=== PATIENT | female | born 1955 | race Caucasian/White ===

== ENCOUNTER 2017-06-29 08:08 | Inpatient (IN) | payer OTHER ==
[~2017-06-29] VITALS: Ht 171.4 cm; Wt 106.1 kg
[2017-06-29] VITALS (9 sets, daily range): BP systolic 112–178; BP diastolic 67–100; PULSE 52–77; RESP 11–20; O2SAT 93–99
--- NOTE | 2017-06-29 08:17 | ED.REPORT ---
HPI-Dizziness / Weakness Date of Service Jun 29, 2017 ED Provider: Marcus Roper MD Patient is a 62 year old female with a history of atrial fibrillation on Warfarin and a tricuspid and mitral valve replacement 8 months ago who presents to the ED via EMS complaining of sudden onset dizziness this morning. Associated symptoms include nausea and peripheral diplopia. She denies headache , tinnitus, chest pain, shortness of breath or fever. The patient reports that she got up this morning to use the restroom and when she laid back in bed she began feeling extremely dizzy. Per EMS, when the patient was symptomatic she would go into runs of junctional rhythm, losing P waves, that lasts about 15 seconds. When the patient sat up or stood she also went into the junctional rhythm and had occasional PJCs with occasional rate changes slowing down into the mid 40's. Patient's pressures stayed in the 160's and Zofran was given en route. The patient states that she has never experienced this before. She also reports that two weeks ago her medication doses were changed. Nursing Notes Stated Complaint: HEART RHYTHM ISSUES Chief Complaint: Dysrhythmia/Cardiac Nursing Notes Reviewed: Yes Allergies: Coded Allergies: Beta-Blockers (Beta-Adrenergic Bloc (Verified Allergy, Intermediate, hallucinations, 06/29/17) latex (Verified Allergy, Intermediate, skin szymanski, 06/29/17) banana (Verified Allergy, Unknown, 06/29/17) codeine (Verified Adverse Reaction, Intermediate, nausea, vomiting, 06/29/17 ) General Time Seen by MD: 08:12 Chief Complaint Dizzy Hx Obtained From: Patient, EMS Arrived By: Ambulance Onset Occurred: Just prior to arrival Symptom Duration: Since onset Severity: Current: No pain currently Recent Healthcare: Recent doctor visit Similar Sx Previous: No Past Medical History Past Medical History atrial fibrillation on Warfarin Grave's disease Reports: Hyperlipidemia Past Surgical History tricuspid and mitral valve replacement Smoking History Unknown if Ever Smoker Social History Other Social History: From out of town, Visiting locally Ambulatory Status Independent Review of Systems Constitutional: Denies: Chills, Fever Eyes: Reports: Diplopia Ears / Nose / Throat: Denies: Ear ringing bilateral Respiratory: Denies: Non-productive cough, Shortness of breath Cardiovascular: Denies: Chest pain GI: Reports: Nausea Skin: Denies Itching, Denies Rash Neurologic: Reports: Dizziness, Denies: Headache, Numbness, Weakness Complete sys rev & neg: except as marked. Physical Exam Initial Vital Signs Vital Signs (First) Date Time Temp Pulse Resp B/P Pulse Ox O2 Delivery O2 Flow Rate FiO2 06/29/17 08:08 37.1 70 14 178/81 99 Room Air Initial VS: Reviewed General/Constitutional: Awake, Alert Head / Eyes: Atraumatic, Normocephalic, PERRL extraoccular movements intact horizontal nystagmus to the right Respiratory / Chest: Atraumatic, Breath sounds NL, Breath sounds = bilat, No respiratory distress Cardiovascular: Heart rate NL, Regular rhythm mechanical valve click Neurologic: Oriented X3, Speech NL, No motor deficits, No sensory deficits no facial droop or asymmetry no ataxia ENT: Atraumatic, Airway patent, Tympanic membs NL Neck: Atraumatic, Supple, No carotid bruit Lower Extremity / Pelvis / MS: Atraumatic, Full range of motion Skin: Atraumatic, Color NL, No rash, Warm, Dry Psychiatric: Affect NL, Mood NL Interpretation & Diagnostics Interpretation & Diagnostics: BRAIN MRI: IMPRESSION: IMPRESSION: 1. Small acute to early subacute lacunar infarct in the left cerebellar hemisphere. No associated hemorrhagic transformation. Findings discussed with Dr. Roper on 06/29/17 at 3 PM. 2. Scattered small foci of magnetic susceptibility bilaterally are nonspecific and may reflect foci of amyloid. 3. Mild cerebral volume loss and chronic white matter small vessel ischemic changes. Dictated by: Max Aaron M.D. on 06/29/2017 at 14:58 Approved by: Max Aaron M.D. on 06/29/2017 at 15:11 Lab Results Interpretation Result Diagram: 06/29/17 0810 06/29/17 0810 Test 06/29/17 08:10 White Blood Count 5.8th/mm3 (3.8-10.1) Red Blood Count 4.73mil/mm3 (3.90-5.20) Hemoglobin 13.1g/dL (12.0-15.6) Hematocrit 40.7% (35.0-46.0) Mean Corpuscular Volume 86.0fL (81-100) Mean Corpuscular Hemoglobin 27.7pg (27.0-35.0) Mean Corpuscular Hemoglobin Concent 32.2% (32.0-37.0) Red Cell Distribution Width 16.0% (12.3-15.4) Platelet Count 183bil/L (150-400) Neutrophils (%) (Auto) 42.1% (40-74) Lymphocytes (%) (Auto) 44.7% (14-46) Monocytes (%) (Auto) 8.2% (4-12) Eosinophils (%) (Auto) 4.1% (0-5) Basophils (%) (Auto) 0.7% (0-3) Prothrombin Time 18.7sec (8.1-12.5) Prothromb Time International Ratio 1.73ratio Sodium Level 142mEq/L (134-144) Potassium Level 3.6mEq/L (3.5-5.2) Chloride Level 102mEq/L (97-108) Carbon Dioxide Level 22mmol/L (18-29) Blood Urea Nitrogen 15mg/dL (8-27) Creatinine 0.95mg/dL (0.57-1.00) Estimat Glomerular Filtration Rate 85mL/min (>59) Glucose Level 87mg/dL (60-99) Calcium Level 9.4mg/dL (8.5-10.1) Magnesium Level 2.1mg/dL (1.6-2.6) Total Bilirubin 0.5mg/dL (0.0-1.2) Aspartate Amino Transf (AST/SGOT) 23U/L (0-50) Alanine Aminotransferase (ALT/SGPT) 18U/L (0-32) Alkaline Phosphatase 97U/L (25-165) Troponin T 0.010ug/L (0.0-0.011) Total Protein 7.7g/dL (6.4-8.4) Albumin 4.0g/dL (3.4-5.0) ECG Interpretation ECG Interpretation: atrial fibrillation, rate 74, with LVH Time: 08:16 Interpreted by: ED physician ECG Interpretation: atrial fibrillation slow ventricular response Time: 12:17 Normal ECG Interpretation: Normal rate (53) X-Ray Chest Interpretation Chest Xray Interpretation: IMPRESSION: 1. Probable scarring in the right midlung peripherally. 2. No definite acute cardiopulmonary disease. Dictated by: Max Aaron M.D. on 06/29/2017 at 9:02 Approved by: Max Aaron M.D. on 06/29/2017 at 9:04 View: Portable, 1 view Interpretation / Wet Read by: Interpret - Radiologist CT Head Interpretation IMPRESSION: 1. No definite acute intracranial abnormality. 2. Bilateral basal ganglia calcifications of indeterminate clinical significance. The findings are nonspecific with a broad differential but likely reflect a metabolic process. Correlation is recommended with clinical history. Dictated by: Max Aaron M.D. on 06/29/2017 at 8:41 Approved by: Max Aaron M.D. on 06/29/2017 at 8:44 Interpretation / Wet Read by: Interpret - Radiologist Re-Eval/Medical Decision Med Decision/Clinical Course 62 year-old female with a mechanical valve presenting with vertigo. Abrupt onset with change in head postion suggested peripheral origin. Was noted to be inadequately anticoagulated and vertigo was persistent and disabling. MR brain, which was delayed by need to confirm implants were safe for MR (they were) demomstrated lacunar infarct of L cerebellum. Lovenox ordered and CT angio brain ordered. Plan to admit with Neuro consult. Re-Evaluation/Progress #1: Time of Eval: 10:10 Re-Evaluation/Progress Note: Discussed EKG, labs and scan results. Re-Evaluation/Progress #2: Time of Eval: 11:19 Re-Evaluation/Progress Note: Patient states that when she sat up to go to CT she suddenly got dizzy. Re-Evaluation/Progress #3: Time of Eval: 13:20 Re-Evaluation/Progress Note: Patient reports that her dizziness has improved. Discussed plan for MRI Re-Evaluation/Progress #4: Time of Eval: 15:16 Re-Evaluation/Progress Note: Discussed MRI results and plan for admit. Patient understands and agrees to plan. All questions were addressed. 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 Roper personally performed the history, physical exam and medical decision-making; I reviewed and confirmed the accuracy of the information in the transcribed note. Signed by: Kiran Flores, 06/29/17. Marcus Roper MD Jun 29, 2017 08:16 Leeann Torres Jun 29, 2017 08:23
[2017-06-29 08:44] LABS: BASOPHILS % (AUTO) 0.7 % (0-3); EOSINOPHILS % (AUTO) 4.1 % (0-5); MONOCYTES % (AUTO) 8.2 % (4-12); Mean Corpuscular Hemoglobin 27.7 pg (27.0-35.0); NEUTROPHILS % (AUTO) 42.1 % (40-74); Platelet Count 183 bil/L (150-400)
--- NOTE | 2017-06-29 08:45 | DRSVH ---
PROCEDURE: CT BRAIN WITHOUT CONTRAST ([id number]) INDICATIONS: vertigo, anticoagulated TECHNIQUE: Noncontrast 4.5 mm thick angled axial sections acquired from the foramen magnum to the vertex, with c oronal reformats. COMPARISON: None. FINDINGS: Image quality: Excellent. CSF spaces: Basal cisterns are patent. No extra-axial fluid collections. Ventricles are normal in size and shape. Brain: No intracranial hemorrhage, mass, or mass effect. Murphy-white matter interface is preserved. There is bilateral hyperdensity within the basal ganglia likely representing calcifications. Skull and face: Calvarium and visualized facial bones are intact, without suspicious lesions. Sinuses: Visualized sinuses and mastoids are clear. IMPRESSION: 1. No definite acute intracranial abnormality. 2. Bilateral basal ganglia calcifications of indeterminate clinical significance. The findings are nonspecific with a broad differential but likely reflect a metabolic process. Correlation is recomme nded with clinical history. Dictated by: Max Aaron M.D. on 06/29/2017 at 8:41 Approved by: Max Aaron M.D. on 06/29/2017 at 8:44
[2017-06-29 09:04] LABS: INR 1.73 ratio
--- NOTE | 2017-06-29 09:05 | DRSVH ---
PROCEDURE: X-RAY CHEST ONE VIEW, PORTABLE ([id number]) INDICATIONS: Dizziness and irregular heart rhythm. TECHNIQUE: One view of the chest was acquired. COMPARISON: None. FINDINGS: Surgical changes and devices: There are postsurgical changes in the mediastinum including multiple me tha sternotomy wires including a fractured superior wire. Lungs and pleura: No pleural effusions or pneumothorax. No focal consolidation. There are linear r ight peripheral midlung opacities likely representing scarring. Mediastinum: Mediastinal contours appear normal. Heart size is at the upper limits of normal. Bones and chest wall: No suspicious bony lesions. Overlying soft tissues appear unremarkable. IMPRESSION: 1. Probable scarring in the right midlung peripherally. 2. No definite acute cardiopulmonary disease. Dictated by: Max Aaron M.D. on 06/29/2017 at 9:02 Approved by: Max Aaron M.D. on 06/29/2017 at 9:04
[2017-06-29 09:18] LABS: TROPONIN T 0.01 ug/L (0.0-0.011)
[2017-06-29 09:30] LABS: Magnesium 2.1 mg/dL (1.6-2.6)
--- NOTE | 2017-06-29 15:13 | DRSVH ---
PROCEDURE: MRI BRAIN WITHOUT CONTRAST ([id number]) INDICATIONS: vertigo TECHNIQUE: Noncontrast axial T1 spin echo, axial T2 fast spin echo, sagittal and axial FLAIR, coronal T2 fast sp in echo, axial gradient echo, axial diffusion and ADC through the brain. COMPARISON: None. FINDINGS: Image quality: Excellent. CSF Spaces: Basal cisterns are patent. No extra-axial fluid collections. There is mild cerebral vo lume loss with prominence of the ventricles and sulci. Brain: There is a small focus of restricted diffusion within the left cerebellar hemisphere with cor responding hypointense signal on the ADC map and T2 hyperintensity. Findings are consistent with a s mall lacunar infarct, likely acute to early subacute. No definite evidence of hemorrhagic transforma tion. Elsewhere, there are scattered small foci of magnetic susceptibility in a subcortical distribu tion which are nonspecific and may reflect amyloid. Murphy/white matter interface is otherwise preserv ed. There are diffuse subcortical and periventricular foci of white matter T2 hyperintensity consist ent with mild chronic small vessel ischemic changes. Brainstem appears normal. Normal intravascular flow voids are present. Skull and face: Calvarium has normal marrow signal. Orbits appear normal. Sinuses: Sinuses and mastoids are clear. IMPRESSION: 1. Small acute to early subacute lacunar infarct in the left cerebellar hemisphere. No associated h emorrhagic transformation. Findings discussed with Dr. Roper on 06/29/17 at 3 PM. 2. Scattered small foci of magnetic susceptibility bilaterally are nonspecific and may reflect foci of amyloid. 3. Mild cerebral volume loss and chronic white matter small vessel ischemic changes. Dictated by: Max Aaron M.D. on 06/29/2017 at 14:58 Approved by: Max Aaron M.D. on 06/29/2017 at 15:11
[2017-06-29] MEDS ORDERED: ATOR80TA PO (15:45)
[2017-06-29] MEDS ORDERED: WARF7.5T4 PO (15:45)
[2017-06-29] MEDS ORDERED: Alum-Mag Hydrox-Simeth 30 mL Suspension PO PRN ×2 (16:35→17:25)
[2017-06-29] MEDS ORDERED: Ondansetron 2 mg/mL 2 mL Inj IVPUSH PRN ×2 (16:35→17:25)
[2017-06-29] MEDS ORDERED: Polyethylene Glycol (PEG) 17 Gm Powder PO PRN (17:25)
--- NOTE | 2017-06-29 17:30 | DRSVH ---
PROCEDURE: CT ANGIO HEAD AND NECK (P) INDICATIONS: cerebellar infarct TECHNIQUE: After the administration of intravenous contrast, 1 mm thick sections acquired from the aortic arch t hrough the [place] of [place]. Post-contrast 4.5 mm thick sections then re-acquired from the foramen m agnum to the vertex. 3-dimensional poziknd-kzcxleqjf-fjocxfthzm (MIP) and/or volume rendering reform ats were acquired of the central intracranial vasculature and neck separately. For radiation dose re duction, the following was used: automated exposure control, adjustment of mA and/or kV according to patient size. COMPARISON: [facility], MR, MR BRAIN WO CON, 06/29/2017, 13:58. [facility], CT, CT BRAIN WO CON, 06/29/2017, 8:34. FINDINGS: Image quality: Excellent. BRAIN: CSF spaces: Ventricles are normal in size and shape. Basal cisterns are patent. No extra-axial flu id collections. Brain: There is a small focal hypodensity in the left cerebral hemisphere corresponding to the swall owed coin infarct seen on MRI. This has increased in conspicuity compared to the recent CT. No intr acranial mass or mass effect. No abnormal intracranial enhancement. Murphy-white matter interface appe ars intact. Skull and face: Calvarium and facial bones appear intact, without suspicious lesions. Orbits appear normal. Sinuses: Sinuses and mastoids are clear. HEAD CT ANGIOGRAPHY: Anterior circulation: Intracranial internal carotid arteries are normal in size with mild multifocal calcified plaque along the cavernous segments but no definite high-grade stenoses. The flow within the paired anterior cerebral arteries is patent bilaterally. The flow within the middle cerebral art eries is patent bilaterally. The anterior communicating artery is seen. No aneurysms are seen. Posterior circulation: Visualized portions of the vertebral arteries demonstrate normal caliber, and join to form a normal appearing basilar artery. Flow within the posterior cerebral arteries is murguia nt bilaterally. No aneurysms are seen. NECK CT ANGIOGRAPHY: Carotid system: The great vessels demonstrate conventional anatomy as they arise from the aortic arc h. The origins of the common carotid arteries appear patent. The common carotid arteries demonstrat e normal caliber and courses. The bifurcation regions are both widely patent. The internal carotid arteries demonstrate normal calibers and courses. Posterior circulation: The origins of the vertebral arteries both appear widely patent. The more alcantar perior extracranial portions of both vertebral arteries also demonstrate normal courses and calibers. They join to form a patent basilar artery. The visualized proximal segments of the posterior infer ior cerebellar arteries appear patent bilaterally. Soft tissues: Visualized neck soft tissues demonstrate no suspicious abnormalities. Bones: No suspicious bony lesions. Visualized cervical spine appears normally aligned. IMPRESSION: 1. No high-grade stenosis of occlusion of the central intracranial arteries. 2. No high-grade stenosis or occlusion of the head and neck arteries. Specifically the vertebral an d basilar arteries appear patent. The visualized proximal posterior inferior cerebellar arteries als o appear patent. 3. Small lacunar infarct redemonstrated in the left cerebellar hemisphere. Dictated by: Max Aaron M.D. on 06/29/2017 at 17:20 Approved by: Max Aaron M.D. on 06/29/2017 at 17:28
--- NOTE | 2017-06-29 17:36 | PCM.HPMED ---
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 She is visiting with her from [facility]. He has a tricuspid ring placement and mechanical mitral valve replacement 8 months ago at [facility] in [place]. She was in her usual state of health however this morning woke up and had significant vertigo worse with movement she had nausea with it she denies any headache chest pain shortness of breath palpitations. Per EMS on the patient was symptomatic she would go into runs of junctional rhythm. It would last about 15 seconds. She notes lying flat she does not notice any symptoms however when she sits up she develops vertigo again. She has no prior history of similar. She has no prior history of strokes. Per patient and her heart valve problems started about 2 years ago and she had open heart surgery for in 2014 and then again repeat October 2016 of note her INR in the emergency room is 1.73. She does note she gets her INR checked about every 2 weeks but this weekend being away she was eating a lot of things she normally would not eat. Of note patient was found to have a lacunar cerebellar infarct on the left with no hemorrhagic transformation noted on MRI. Review of Systems: All other review of systems are reviewed and are negative except for as in history of present illness Allergies Coded Allergies: Beta-Blockers (Beta-Adrenergic Bloc (Verified Allergy, Intermediate, hallucinations, 06/29/17) latex (Verified Allergy, Intermediate, skin szymanski, 06/29/17) banana (Verified Allergy, Unknown, 06/29/17) codeine (Verified Adverse Reaction, Intermediate, nausea, vomiting, 06/29/17 ) Home Medications Patient and are unsure of this and will try to get that information for [facility] Past Medical History atrial fibrillation on Warfarin Grave's disease Reports: Hyperlipidemia Past Surgical History tricuspid and mitral valve replacement Family History Family medical history is significant for CVAs Social History Hx Alcohol Use: No Hx Substance Use: No Hx Tobacco Use: Yes Smoking Status: Former Smoker (2 years ago and used to smoke 2 packs per day), Unknown if Ever Smoker Living Arrangement: with Family Exam Vital Signs Vital Sign - Last Date Time Temp Pulse Resp B/P Pulse Ox O2 Delivery O2 Flow Rate FiO2 06/29/17 15:30 53 14 123/77 97 Room Air 06/29/17 08:08 37.1 Exam Constitutional: Middle-aged female in no acute distress Head: Normocephalic atraumatic Eyes: PERRLA DC EOMI Mouth: No lesions Neck Linder several further bruits Chest: Clear to auscultation Cor: Regular rate and rhythm S1-S2 with a crisp S1 no murmur heard Abdomen: Soft nontender bowel sounds present Extremities: No pedal edema Skin: No rashes Psych: Mood and affect are appropriate Neuro: Alert and oriented 3, motor strength is intact bilaterally, no dysmetria noted on exam finger to nose is intact Lab and Diagnostics Labs Laboratory Tests 72 Hours Test 06/29/17 08:10 White Blood Count 5.8th/mm3 (3.8-10.1) Red Blood Count 4.73mil/mm3 (3.90-5.20) Hemoglobin 13.1g/dL (12.0-15.6) Hematocrit 40.7% (35.0-46.0) Mean Corpuscular Volume 86.0fL (81-100) Mean Corpuscular Hemoglobin 27.7pg (27.0-35.0) Mean Corpuscular Hemoglobin Concent 32.2% (32.0-37.0) Red Cell Distribution Width 16.0% (12.3-15.4) Platelet Count 183bil/L (150-400) Neutrophils (%) (Auto) 42.1% (40-74) Lymphocytes (%) (Auto) 44.7% (14-46) Monocytes (%) (Auto) 8.2% (4-12) Eosinophils (%) (Auto) 4.1% (0-5) Basophils (%) (Auto) 0.7% (0-3) Prothrombin Time 18.7sec (8.1-12.5) Prothromb Time International Ratio 1.73ratio Sodium Level 142mEq/L (134-144) Potassium Level 3.6mEq/L (3.5-5.2) Chloride Level 102mEq/L (97-108) Carbon Dioxide Level 22mmol/L (18-29) Blood Urea Nitrogen 15mg/dL (8-27) Creatinine 0.95mg/dL (0.57-1.00) Estimat Glomerular Filtration Rate 85mL/min (>59) Glucose Level 87mg/dL (60-99) Calcium Level 9.4mg/dL (8.5-10.1) Magnesium Level 2.1mg/dL (1.6-2.6) Total Bilirubin 0.5mg/dL (0.0-1.2) Aspartate Amino Transf (AST/SGOT) 23U/L (0-50) Alanine Aminotransferase (ALT/SGPT) 18U/L (0-32) Alkaline Phosphatase 97U/L (25-165) Troponin T 0.010ug/L (0.0-0.011) Total Protein 7.7g/dL (6.4-8.4) Albumin 4.0g/dL (3.4-5.0) Result Diagram: 06/29/17 0810 06/29/17 0810 X-Rays, CTs and MRIs PROCEDURE: MRI BRAIN WITHOUT CONTRAST ([id number]) INDICATIONS: vertigo TECHNIQUE: Noncontrast axial T1 spin echo, axial T2 fast spin echo, sagittal and axial FLAIR, coronal T2 fast spin echo, axial gradient echo, axial diffusion and ADC through the brain. COMPARISON: None. FINDINGS: Image quality: Excellent. CSF Spaces: Basal cisterns are patent. No extra-axial fluid collections. There is mild cerebral volume loss with prominence of the ventricles and sulci. Brain: There is a small focus of restricted diffusion within the left cerebellar hemisphere with corresponding hypointense signal on the ADC map and T2 hyperintensity. Findings are consistent with a small lacunar infarct, likely acute to early subacute. No definite evidence of hemorrhagic transformation. Elsewhere, there are scattered small foci of magnetic susceptibility in a subcortical distribution which are nonspecific and may reflect amyloid. Murphy/white matter interface is otherwise preserved. There are diffuse subcortical and periventricular foci of white matter T2 hyperintensity consistent with mild chronic small vessel ischemic changes. Brainstem appears normal. Normal intravascular flow voids are present. Skull and face: Calvarium has normal marrow signal. Orbits appear normal. Sinuses: Sinuses and mastoids are clear. IMPRESSION: 1. Small acute to early subacute lacunar infarct in the left cerebellar hemisphere. No associated hemorrhagic transformation. Findings discussed with Dr. Roper on 06/29/17 at 3 PM. 2. Scattered small foci of magnetic susceptibility bilaterally are nonspecific and may reflect foci of amyloid. 3. Mild cerebral volume loss and chronic white matter small vessel ischemic changes. Dictated by: Max Aaron M.D. on 06/29/2017 at 14:58 Approved by: Max Aaron M.D. on 06/29/2017 at 15:11 12-lead ECG Atrial fibrillation at a rate of 57 poor R-wave progression across precordium Assessment & Plan #Acute onset of vertigo with new left cerebellar lacunar infarct, present on admission -Case was discussed by ER doctor with neurology who recommended therapeutic subcutaneous Lovenox given subtherapeutic INR -CTA of brain and neck are pending at the time of this dictation -Echocardiogram in a.m. -Placed on telemetry -Pharmacy to dose warfarin therapy -Check fasting lipid panel -OT, PT, speech therapy evaluations # History of tricuspid and mitral valve replacements one of which is mechanical , present on admission -We will try to get records from [facility] # Hyperlipidemia, chronic, present on admission -Place her on her usual Lipitor dose # DVT prophylaxis -Is to be on therapeutic Lovenox # CODE STATUS -Full code Patient does not know her medications at this time and they are trying to get that information and will need to do medication reconciliation when that is available GI Prophylaxis: H2 bubba VTE Prophylaxis: Other (therapeutic Lovenox) Resuscitation Status: CPR: Attempt Resuscitation Time spent 60 minutes Sowmya Jacques MD Jun 29, 2017 17:36
[2017-06-29] MEDS ORDERED: Non-Formulary Medication (Atorvastatin (Lipitor) 80 MG) PO SCH (17:45)
[2017-06-29] MEDS ORDERED: MAGN400T39 PO (18:20)
[2017-06-29] MEDS ORDERED: METH10TA4 PO (18:20)
[2017-06-29] MEDS ORDERED: ACET325T51 PO (18:20)
[2017-06-29] MEDS ORDERED: MELA3TAB35 PO (18:20)
[2017-06-29] MEDS ORDERED: POTA-62 PO (18:20)
[2017-06-29] MEDS ORDERED: FUR20 PO (18:20)
[2017-06-29] MEDS ORDERED: VITA1CAP16 PO (18:20)
--- NOTE | 2017-06-29 18:47 | PCM.CONPHA ---
Subjective Requesting Provider: Sowmya Jacques MD Acute onset of vertigo this morning Reason for Pharmacy Consult: Anticoagulation Management Assessment/Plan Assessment/Plan Warfarin dosing for patient with A-Fib admitted with a cerebellar infarct on concurrent enoxaparin: INR today is 1.73. Normal home dose is 7.5mg per patient. Will give 7.5mg today then follow INRs. Armida Rodriguez [facility] Jun 29, 2017 18:46
--- NOTE | 2017-06-29 18:48 | NUR ---
ADMIT Patient arrived from ED to 3028 at 1805. AAOX3, C/O mild headache of 4/10 which is tolerable. Able to transfer from [facility] to and bed with SBA for safety. Some generalized weakness noted. Med rec partially completed in ED through patient and spouse recall. Spouse will attempt to bring med bottles from home. Oriented to room, call light, MPC and hospital policy. Patient has some word searching at times and reports her left eye is "twitchy". 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 Bed low and locked, call light in reach, care and rounding ongoing.
[2017-06-30] VITALS (9 sets, daily range): BP systolic 110–127; BP diastolic 63–81; PULSE 51–59; RESP 18–20; O2SAT 83–97
--- NOTE | 2017-06-30 | NUR ---
Facial Droop/Speech: Upon assessment, pt noted to have mild L eye/facial droop, pt denies any sensory changes, smile symmetrical, tongue midline. Pt noted to word search at times along with occasional mumbling and difficulty expressing self. Pt states this has gotten a little worse and that it comes and goes. Aspirin noted to not be given, pt denied taking aspirin at home or receiving it by EMT or ER. MD called and made aware of slight neuro changes and no aspirin being administered. RN to continue to do neuro checks throughout the night.
--- NOTE | 2017-06-30 06:24 | NUR ---
Neuros: Pt's L eye and facial droop improved throughout the night. Pt c/o R knee pain, medication administered; effective. Pt slept most of the night, pleasant and cooperative with care.
[2017-06-30 07:35] LABS: INR 1.57 ratio
--- NOTE | 2017-06-30 08:09 | NUR ---
CVA Pt teaching provided re new dx of CVA. Pamphlet provided. Risk factors discussed. Pt denied having questions. States is familiar with it d/t her dad having "many strokes" No residuals noted, besides generalized weakness. HOB elevated per orders, will continue to monitor.
--- NOTE | 2017-06-30 11:55 | NUR ---
Evaluation completed. Please go to "Notes" then click on "Assessments and Notes" (bottom left corner of screen). Then select appropriate discipline tab on top of screen.
--- NOTE | 2017-06-30 12:00 | NUR ---
Evaluation completed. Please go to "Notes" then click on "Assessments and Notes" (bottom left corner of screen). Then select appropriate discipline tab on top of screen.
--- NOTE | 2017-06-30 12:13 | NUR ---
Social Work-initial assessment/readiness for discharge/multidisciplinary rounds: Data:See initial assessment. Pt is a 62 y/o female who was admitted on 06/29/17 for cerebellar infarction per H&P. Pt's insurance is [employer] and PCP is Dr. Mesha MD. EMR reviewed. Pt's readmission score is 1. SW met with pt at bedside, SW role explained. Pt is alert and oriented x3. Pt resides at home with her in [facility] where she remains independent with ADLs. Pt and live in a single level home with a basement. Pt does not use any DME and does not drive. Pt has no HH or SNF history. Pt has no intermediate teacher care insurance or VA benefits. SW discussed DPOA/ advanced directive, pt confirms this has been completed ,SW encouraged a copy to be brought in. No concerns noted in morning rounds regarding pt's capacity for self care from RN or MD. PT and ST have cleared pt for home no needs. Pt confirms her will provide transport home at discharge. SW provided pt with discharge planning checklist and encouraged pt to call with any questions,phone number provided on white board in room. No anticipated discharge needs. SW will continue to follow if needs arise. Assessment:Pt who is independent at baseline. Plan:Pt to discharge home when medically stable via POV. No anticipated discharge needs. SW will continue to follow if needs arise. FOSTER Contreras Addendum: 06/30/17 at 1217 by SHAKIR ELIZALDE SS Amended: Links added.
--- NOTE | 2017-06-30 15:19 | PCM.PNMED ---
Subjective Date of Service Jun 30, 2017 Subjective Patient with decreased frequency and severity of vertigo. Exam Vital Signs Vital Sign - Last Date Time Temp Pulse Resp B/P Pulse Ox O2 Delivery O2 Flow Rate FiO2 06/30/17 13:39 36.7 59 20 120/81 97 Room Air 06/30/17 06:37 2.00 Intake and Output 06/29/17 06/29/17 06/30/17 Cumulative From/Thru 15:00 23:00 07:00 06/29/17 08:08 - 06/30/17 06:49 Intake Total 650 ml 650 ml Balance 650 ml 650 ml Intake Oral 650 ml 650 ml # Voids 5 5 # Bowel Movements 0 0 Exam Constitutional: Middle-aged female in no acute distress Head: Normocephalic and manic Chest: Clear to auscultation Cor: Regular rate and rhythm S1 crisp, S2 Abdomen: Soft nontender bowel sounds present Extremities: No pedal edema : Mood and affect appropriate Neuro: Alert and oriented 3, motor strength is intact bilaterally. Still continues to have vertigo on sitting and standing. Lab and Diagnostics Result Diagram: 06/29/17 0810 06/29/17 0810 X-Rays, CTs and MRIs PROCEDURE: CT ANGIO HEAD AND NECK (P) INDICATIONS: cerebellar infarct TECHNIQUE: After the administration of intravenous contrast, 1 mm thick sections acquired from the aortic arch through the [place]. Post-contrast 4.5 mm thick sections then re-acquired from the foramen magnum to the vertex. 3-dimensional fywezjc-rrhyuumuk-hiicexocok (MIP) and/or volume rendering reformats were acquired of the central intracranial vasculature and neck separately. For radiation dose reduction, the following was used: automated exposure control, adjustment of mA and/or kV according to patient size. COMPARISON: [facility], MR, MR BRAIN WO CON, 06/29/2017, 13:58. [facility], CT, CT BRAIN WO CON, 06/29/2017, 8:34. FINDINGS: Image quality: Excellent. BRAIN: CSF spaces: Ventricles are normal in size and shape. Basal cisterns are patent. No extra-axial fluid collections. 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 This has increased in conspicuity compared to the recent CT. No intracranial mass or mass effect. No abnormal intracranial enhancement. Murphy-white matter interface appears intact. Skull and face: Calvarium and facial bones appear intact, without suspicious lesions. Orbits appear normal. Sinuses: Sinuses and mastoids are clear. HEAD CT ANGIOGRAPHY: Anterior circulation: Intracranial internal carotid arteries are normal in size with mild multifocal calcified plaque along the cavernous segments but no definite high-grade stenoses. The flow within the paired anterior cerebral arteries is patent bilaterally. The flow within the middle cerebral arteries is patent bilaterally. The anterior communicating artery is seen. No aneurysms are seen. Posterior circulation: Visualized portions of the vertebral arteries demonstrate normal caliber, and join to form a normal appearing basilar artery. Flow within the posterior cerebral arteries is patent bilaterally. No aneurysms are seen. NECK CT ANGIOGRAPHY: Carotid system: The great vessels demonstrate conventional anatomy as they arise from the aortic arch. The origins of the common carotid arteries appear patent. The common carotid arteries demonstrate normal caliber and courses. The bifurcation regions are both widely patent. The internal carotid arteries demonstrate normal calibers and courses. Posterior circulation: The origins of the vertebral arteries both appear widely patent. The more superior extracranial portions of both vertebral arteries also demonstrate normal courses and calibers. They join to form a patent basilar artery. The visualized proximal segments of the posterior inferior cerebellar arteries appear patent bilaterally. Soft tissues: Visualized neck soft tissues demonstrate no suspicious abnormalities. Bones: No suspicious bony lesions. Visualized cervical spine appears normally aligned. IMPRESSION: 1. No high-grade stenosis of occlusion of the central intracranial arteries. 2. No high-grade stenosis or occlusion of the head and neck arteries. Specifically the vertebral and basilar arteries appear patent. The visualized proximal posterior inferior cerebellar arteries also appear patent. 3. Small lacunar infarct redemonstrated in the left cerebellar hemisphere. Dictated by: Max Aaron M.D. on 06/29/2017 at 17:20 Approved by: Max Aaron M.D. on 06/29/2017 at 17:28 PROCEDURE: MRI BRAIN WITHOUT CONTRAST ([id number]) INDICATIONS: vertigo TECHNIQUE: Noncontrast axial T1 spin echo, axial T2 fast spin echo, sagittal and axial FLAIR, coronal T2 fast spin echo, axial gradient echo, axial diffusion and ADC through the brain. COMPARISON: None. FINDINGS: Image quality: Excellent. CSF Spaces: Basal cisterns are patent. No extra-axial fluid collections. There is mild cerebral volume loss with prominence of the ventricles and sulci. Brain: There is a small focus of restricted diffusion within the left cerebellar hemisphere with corresponding hypointense signal on the ADC map and T2 hyperintensity. Findings are consistent with a small lacunar infarct, likely acute to early subacute. No definite evidence of hemorrhagic transformation. Elsewhere, there are scattered small foci of magnetic susceptibility in a subcortical distribution which are nonspecific and may reflect amyloid. Murphy/white matter interface is otherwise preserved. There are diffuse subcortical and periventricular foci of white matter T2 hyperintensity consistent with mild chronic small vessel ischemic changes. Brainstem appears normal. Normal intravascular flow voids are present. Skull and face: Calvarium has normal marrow signal. Orbits appear normal. Sinuses: Sinuses and mastoids are clear. IMPRESSION: 1. Small acute to early subacute lacunar infarct in the left cerebellar hemisphere. No associated hemorrhagic transformation. Findings discussed with Dr. Roper on 06/29/17 at 3 PM. 2. Scattered small foci of magnetic susceptibility bilaterally are nonspecific and may reflect foci of amyloid. 3. Mild cerebral volume loss and chronic white matter small vessel ischemic changes. Dictated by: Max Aaron M.D. on 06/29/2017 at 14:58 Approved by: Max Aaron M.D. on 06/29/2017 at 15:11 12-lead ECG Atrial fibrillation at a rate of 57 poor R-wave progression across precordium Assessment & Plan #Acute onset of vertigo with new left cerebellar lacunar infarct, present on admission -Case was discussed by ER doctor with neurology who recommended therapeutic subcutaneous Lovenox given subtherapeutic INR -CTA of brain and neck reveal any significant abnormalities as noted above. 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
[2017-06-30] MEDS ORDERED: Warfarin 5 MG, Warfarin 2.5 MG PO ONE ×2 (17:00)
[2017-07-01 00:48] VITALS: BP 115/65; PULSE 54; RESP 19; O2SAT 92
[2017-07-01 05:28] VITALS: BP 104/67; PULSE 52; RESP 20; O2SAT 95
[2017-07-01 07:18] LABS: INR 1.85 ratio
[2017-07-01 09:13] VITALS: BP 116/73; PULSE 59; RESP 20; O2SAT 97
[2017-07-01 09:25] VITALS: PULSE 54
--- NOTE | 2017-07-01 10:45 | PCM.CHPMED ---
Subjective Date of Service: Jul 01, 2017 Provider requesting consult: Sowmya Jacques MD Primary Physician: Admitting Physician: Sowmya Jacques MD Primary Care Physician: Elan Attending Physician: Sowmya Jacques MD Chief Complaint: Chief Complaint: NEUROLOGY CONSULTATION Left cerebellar CVA History of Present Illness: Genesis Keating is a 62 year old right-handed woman with past medical history significant for atrial fibrillation and mechanical mitral valve replacement 8 months ago who is on warfarin that presented to the [facility] ED due to vertigo that started two days ago. Neurology consultation is obtained due to new left cerebellar lacunar infarct. She states the symptoms started suddenly when she woke up. She denies any unilateral weakness, headache, numbness, chest pain, gait disturbances, facial droop or ataxia. She noted nausea during the vertigo episodes and notes that her symptoms were exacerbated with movement. She notes lying flat she does not notice any symptoms however when she sits up she develops vertigo again. Upon presentation her INR was subtherapeutic at 1.73. No tPA was given. Patient admits to changing her diet recently and but is compliant with taking her warfarin and is compliant with her INR checks every two weeks. Patient's MRI revealed lacunar infarct in the left cerebellum that is acute/subacute. Patient also complains of word finding difficulty and memory problems over the last few years. She notes this with new memories but is able to recall her childhood and youth easily. She states over the last few days this issue has progressed somewhat. The patient was evaluated by physical therapy and was cleared. She was also evaluated by speech therapy and due to her cognition issues was recommended outpatient follow up. Review of Systems: A comprehensive review of systems was performed and is negative except as noted above in the HPI. PMH Past Medical History Atrial fibrillation on Warfarin Grave's disease Hyperlipidemia Hypertension that is now resolved Bedside Blood Glucose: 122 Surgical History Tricuspid repair and mitral valve replacement with mechanical valve Home Medications Warfarin, uncertain of the rest. Allergies: Coded Allergies: Beta-Blockers (Beta-Adrenergic Bloc (Verified Allergy, Intermediate, hallucinations, 06/29/17) latex (Verified Allergy, Intermediate, skin szymanski, 06/29/17) banana (Verified Allergy, Unknown, 06/29/17) codeine (Verified Adverse Reaction, Intermediate, Nausea,Vomiting, 06/29/17) OXYCODONE IN SMALL DOSES OK Family History Family History Family medical history is significant for CVAs Social History Hx Alcohol Use: NoHx Substance Use: NoHx Tobacco Use: Yes Smoking Status: Former Smoker Unknown if Ever Smoker Living Arrangement: with Family Exam Vital Signs Vital Sign - Last Date Time Temp Pulse Resp B/P Pulse Ox O2 Delivery O2 Flow Rate FiO2 07/01/17 05:28 36.6 52 20 104/67 95 Room Air 06/30/17 06:37 2.00 Intake and Output 06/30/17 06/30/17 07/01/17 Cumulative From/Thru 15:00 23:00 07:00 06/29/17 08:08 - 07/01/17 05:29 Intake Total 1100 ml 1750 ml Output Total 375 ml 375 ml Balance 725 ml 1375 ml Intake Oral 1100 ml 1750 ml Output Urine Total 375 ml 375 ml # Voids 4 9 # Bowel Movements 0 General: Alert, Oriented X3, Cooperative Head: Normal Mouth: Mouth Normal Chest & Lungs: Clear to auscultation & percussion Cardiovascular: Other (mechanical valve click) Abdomen: Soft, Obese Extremities: No Edema Additional Information: Neurological: CN 2-12 intact bilaterally except: decreased nasolabial fold on the right. Patient stated that she had diplopia in peripheral vision of all frankel. Gross sensation to soft touch intact. Reduced temperature sensation of the right upper extremity. Muscle strength 5/5 of bilateral upper and lower extremities. Reduced DTRs diffusely. Gait stable with smooth turn. Rapid alternating movements slow but coordinated. Fine motor skills intact. Finger to nose smooth and coordinated but slow. Negative Rhomberg's. Reduced recall as patient was only able to name 1/3 objects after several minutes. Able to write a sentence. Lab and Diagnostics Result Diagram: 06/29/17 0810 06/29/17 0810 X-Rays, CTs and MRIs MRI BRAIN WITHOUT CONTRAST IMPRESSION: 1. Small acute to early subacute lacunar infarct in the left cerebellar hemisphere. No associated hemorrhagic transformation. Findings discussed with Dr. Roper on 06/29/17 at 3 PM. 2. Scattered small foci of magnetic susceptibility bilaterally are nonspecific and may reflect foci of amyloid. 3. Mild cerebral volume loss and chronic white matter small vessel ischemic changes. Dictated by: Max Aaron M.D. on 06/29/2017 at 14:58 CT ANGIO HEAD AND NECK (P) IMPRESSION: 1. No high-grade stenosis of occlusion of the central intracranial arteries. 2. No high-grade stenosis or occlusion of the head and neck arteries. Specifically the vertebral and basilar arteries appear patent. The visualized proximal posterior inferior cerebellar arteries also appear patent. 3. Small lacunar infarct redemonstrated in the left cerebellar hemisphere. Dictated by: Max Aaron M.D. on 06/29/2017 at 17:20 Assessment & Plan Assessment Genesis Keating is a 62 year old right-handed woman with past medical history significant for atrial fibrillation and mechanical mitral valve replacement 8 months ago who is on warfarin that presented to the [facility] ED due to vertigo that started two days ago. Neurology consultation is obtained due to new left cerebellar lacunar infarct. Cardioembolic CVA -Left cerebellar lacunar infarct likely secondary to subtherapeutic INR with both atrial fibrillation and mechanical valve as possibly culprits -No evidence of intracranial or carotid stenosis, no vertebral artery dissection -LDL <70 -Would recommend patient continue on Lovenox while she reaches a therapeutic INR -Would not recommend ASA or Plavix for secondary prevention unless indicated for cardiovascular disease -Await ECHO with bubble study -Would recommend outpatient follow up with speech therapy -Recommend initiating Vitamin D, B12 and ALA supplementation. Patient would like to consult with the physician in charge of her INR prior to initiating. Ischemic vascular changes with chronic white matter volume loss -Likely cause of the patient's memory deficits due to prior uncontrolled hypertension -Supplementation as above -Speech therapy as above Thank you for allowing us to participate in the care of this patient. Problems: GI Prophylaxis: H2 bubba VTE Prophylaxis: Other (therapeutic Lovenox) VTE Mechanical Devices: Venous Foot Pump Resuscitation Status: CPR: Attempt Resuscitation Emy Silva DO Jul 01, 2017 09:04
--- NOTE | 2017-07-01 13:08 | DRSVH ---
[facility] [address] [place] [address] Echocardiogram Report Name: NERIQUETA ZHAO LStudy Date: 07/01/2017 Height: 67 in Hospital Exam Location: [facility] Weight: 233 lb Gender: Female BSA: 2.2 m2 : 1955 Age: 62 yrs BP: 104/67 mmHg Reason For Study: CVA Ordering Physician: [facility]PITALIST [facility] Performed By: Bhavya Villasenor Referring Physician: JOSETTE GOMES Interpretation Summary The left ventricle is borderline dilated. Left ventricular systolic function is normal. The ejection fraction is estimated to be 60-65%. The right ventricle is mildly dilated. Right ventricular systolic function is moderately reduced. Unable to accurately measure due to mitral valve replacement. There is a mechanical mitral valve. The mitral valve mean gradient is 3 mmHg. There is trace mitral regurgitation. An annuloplasty ring is noted in the tricuspid position. There is trace tricuspid regurgitation. The aortic root is normal size. Injection of contrast documented no interatrial shunt. Procedure: A two-dimensional transthoracic echocardiogram with color flow and Doppler was performed. The study quality was technically adequate. There is no prior echocardiogram noted for this patient. A saline contrast injection was performed to assess for cardiac shunting. The patient was in normal sinus rhythm during the exam. Left Ventricle: The left ventricle is borderline dilated. Left ventricular wall thickness is mildly increased. Left ventricular systolic function is normal. The ejection fraction is estimated to be 60-65%. Septal motion is consistent with post-operative state. There are no focal wall motion abnormalities. Diastolic function could not be accurately assessed due to unobtainable data. Right Ventricle: The right ventricle is mildly dilated. Right ventricular systolic function is moderately reduced. Atria: Unable to accurately measure due to mitral valve replacement. Injection of contrast documented no interatrial shunt. Mitral Valve: There is a mechanical mitral valve. The mitral valve mean gradient is 3 mmHg. There is trace mitral regurgitation. Aortic Valve: The aortic valve is trileaflet. The aortic valve is slightly calcified. There is no hemodynamically significant valvular aortic stenosis. No aortic regurgitation is present. Tricuspid Valve: An annuloplasty ring is noted in the tricuspid position. There is trace tricuspid regurgitation. Pulmonic Valve: The pulmonic valve is normal in structure and function. There is a trace or physiologic amount of pulmonic regurgitation. There is no other significant valvular heart disease. Great Vessels: The aortic root is normal size. The ascending aorta is normal in size. The inferior vena cava was not well visualized. Pericardium/ Pleura There is no pericardial effusion. There is no pleural effusion. MMode/2D Measurements & Calculations LVIDd LVOT diam LV yo. diameter/BSA LV sys. diameter/BSA : 5.4 cm (cm/m^2): 2.5 (cm/m^2): 1.4 LVIDs asc Aorta Diam : 3.0 cm FS: 44.4 % IVSd : 1.cm LVPWd : 1.1 cm TAPSE : 1.1 cm Doppler Measurements & Calculations Ao V2 max MVA(VTI) PA V2 max MV V2 mean: 65.2 cm/sec : 145.3 cm/sec : 66.7 cm/sec MV mean P.8 mmHg Ao max P.4 mmH.9 cm2 PA mean PG MV V2 VTI: 41.4 cm Ao mean PG : 0.89 mmHg LVOT Max Antony : 110.7 cm/sec BERKLEY(I,D): 2.6 cm sev ratio: 0.78 Ao V2 mean LV V1 max PG PA V2 mean BERKLEY indexed to BSA : 95.5 cm/sec : 45.0 cm/sec (cm^2/m^2): 1.2 Ao V2 VTI: 30.3 cm LV V1 VTI PA pr(Accel) BERKLEY(V,D): 2.5 cm2 : 23.8 cm : 37.4 mmHg Reading Physician:AGNES
[2017-07-01 13:44] VITALS: BP 118/57; PULSE 58; RESP 18; O2SAT 94
--- NOTE | 2017-07-01 14:14 | PCM.DIMED ---
Discharge Instructions Date of Service Jul 01, 2017 Dates of Hospitalization Jun 29, 2017 at 16:06 Discharge Diagnosis Discharge Diagnosis Acute CVA Diet Discharge Diet: Heart Healthy Activity Discharge Activity: Other (progress as tolerated) Patient Instructions Patient Instructions You will need daily INR checks by her primary care provider in order to see when you can stop the Lovenox and just be on Coumadin therapy. Follow-up Provider: Clovis Zimmer MD Follow-up with PCP in: Other (in 2 days, sooner if problems) Sowmya Jacques MD Jul 01, 2017 14:14
[2017-07-01] MEDS ORDERED: WARF7.5T PO (14:18)
[2017-07-01] MEDS ORDERED: LOV100 SUBQ (14:18)
--- NOTE | 2017-07-01 14:43 | PCM.DC.MED ---
Discharge Summary Date of Service Jul 01, 2017 Dates of Hospitalization Date of Hospital Admission Jun 29, 2017 at 16:06 Date of Discharge: Jul 01, 2017 Providers: Admitting Physician: Sowmya Jacques MD Primary Care Physician: Elan Attending Physician: Sowmya Jacques MD Diagnosis at Time of Discharge Diagnosis at Time of Discharge Acute CVA Consultations Neurology Procedures XRay, CTs & MRIs PROCEDURE: CT ANGIO HEAD AND NECK (P) INDICATIONS: cerebellar infarct TECHNIQUE: After the administration of intravenous contrast, 1 mm thick sections acquired from the aortic arch through the [place] of [place]. Post-contrast 4.5 mm thick sections then re-acquired from the foramen magnum to the vertex. 3-dimensional gonuuxt-fiievmdrk-akjiwseghg (MIP) and/or volume rendering reformats were acquired of the central intracranial vasculature and neck separately. For radiation dose reduction, the following was used: automated exposure control, adjustment of mA and/or kV according to patient size. COMPARISON: [facility], MR, MR BRAIN WO CON, 06/29/2017, 13:58. [facility], CT, CT BRAIN WO CON, 06/29/2017, 8:34. FINDINGS: Image quality: Excellent. BRAIN: CSF spaces: Ventricles are normal in size and shape. Basal cisterns are patent. No extra-axial fluid collections. 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 This has increased in conspicuity compared to the recent CT. No intracranial mass or mass effect. No abnormal intracranial enhancement. Murphy-white matter interface appears intact. Skull and face: Calvarium and facial bones appear intact, without suspicious lesions. Orbits appear normal. Sinuses: Sinuses and mastoids are clear. HEAD CT ANGIOGRAPHY: Anterior circulation: Intracranial internal carotid arteries are normal in size with mild multifocal calcified plaque along the cavernous segments but no definite high-grade stenoses. The flow within the paired anterior cerebral arteries is patent bilaterally. The flow within the middle cerebral arteries is patent bilaterally. The anterior communicating artery is seen. No aneurysms are seen. Posterior circulation: Visualized portions of the vertebral arteries demonstrate normal caliber, and join to form a normal appearing basilar artery. Flow within the posterior cerebral arteries is patent bilaterally. No aneurysms are seen. NECK CT ANGIOGRAPHY: Carotid system: The great vessels demonstrate conventional anatomy as they arise from the aortic arch. The origins of the common carotid arteries appear patent. The common carotid arteries demonstrate normal caliber and courses. The bifurcation regions are both widely patent. The internal carotid arteries demonstrate normal calibers and courses. Posterior circulation: The origins of the vertebral arteries both appear widely patent. The more superior extracranial portions of both vertebral arteries also demonstrate normal courses and calibers. They join to form a patent basilar artery. The visualized proximal segments of the posterior inferior cerebellar arteries appear patent bilaterally. Soft tissues: Visualized neck soft tissues demonstrate no suspicious abnormalities. Bones: No suspicious bony lesions. Visualized cervical spine appears normally aligned. IMPRESSION: 1. No high-grade stenosis of occlusion of the central intracranial arteries. 2. No high-grade stenosis or occlusion of the head and neck arteries. Specifically the vertebral and basilar arteries appear patent. The visualized proximal posterior inferior cerebellar arteries also appear patent. 3. Small lacunar infarct redemonstrated in the left cerebellar hemisphere. Dictated by: Max Aaron M.D. on 06/29/2017 at 17:20 Approved by: Max Aaron M.D. on 06/29/2017 at 17:28 PROCEDURE: MRI BRAIN WITHOUT CONTRAST ([id number]) INDICATIONS: vertigo TECHNIQUE: Noncontrast axial T1 spin echo, axial T2 fast spin echo, sagittal and axial FLAIR, coronal T2 fast spin echo, axial gradient echo, axial diffusion and ADC through the brain. COMPARISON: None. FINDINGS: Image quality: Excellent. CSF Spaces: Basal cisterns are patent. No extra-axial fluid collections. There is mild cerebral volume loss with prominence of the ventricles and sulci. Brain: There is a small focus of restricted diffusion within the left cerebellar hemisphere with corresponding hypointense signal on the ADC map and T2 hyperintensity. Findings are consistent with a small lacunar infarct, likely acute to early subacute. No definite evidence of hemorrhagic transformation. Elsewhere, there are scattered small foci of magnetic susceptibility in a subcortical distribution which are nonspecific and may reflect amyloid. Murphy/white matter interface is otherwise preserved. There are diffuse subcortical and periventricular foci of white matter T2 hyperintensity consistent with mild chronic small vessel ischemic changes. Brainstem appears normal. Normal intravascular flow voids are present. Skull and face: Calvarium has normal marrow signal. Orbits appear normal. Sinuses: Sinuses and mastoids are clear. IMPRESSION: 1. Small acute to early subacute lacunar infarct in the left cerebellar hemisphere. No associated hemorrhagic transformation. Findings discussed with Dr. Roper on 06/29/17 at 3 PM. 2. Scattered small foci of magnetic susceptibility bilaterally are nonspecific and may reflect foci of amyloid. 3. Mild cerebral volume loss and chronic white matter small vessel ischemic changes. Dictated by: Max Aaron M.D. on 06/29/2017 at 14:58 Approved by: Max Aaron M.D. on 06/29/2017 at 15:11 ECG 12 Lead Atrial fibrillation at a rate of 57 poor R-wave progression across precordium Cardiac Echo Impression Echocardiogram Report Name: GENESIS ZHAO LStudy Date: 07/01/2017 Height: 67 in Hospital Exam Location: [facility] Weight: 233 lb Gender: Female BSA: 2.2 m2 : 1955 Age: 62 yrs BP: 104/67 mmHg Reason For Study: CVA Ordering Physician: HOSPITALIST [facility] Performed By: Bhavya Villasenor Referring Physician: SOWMYA JACQUES Interpretation Summary The left ventricle is borderline dilated. Left ventricular systolic function is normal. The ejection fraction is estimated to be 60-65%. The right ventricle is mildly dilated. Right ventricular systolic function is moderately reduced. Unable to accurately measure due to mitral valve replacement. There is a mechanical mitral valve. The mitral valve mean gradient is 3 mmHg. There is trace mitral regurgitation. An annuloplasty ring is noted in the tricuspid position. There is trace tricuspid regurgitation. The aortic root is normal size. Injection of contrast documented no interatrial shunt. Brief History Genesis Zhao is a 62 year old right-handed woman with past medical history significant for atrial fibrillation and mechanical mitral valve replacement 8 months ago who is on warfarin that presented to the [facility] ED due to vertigo that started two days ago. Neurology consultation is obtained due to new left cerebellar lacunar infarct. She states the symptoms started suddenly when she woke up. She denies any unilateral weakness, headache, numbness, chest pain, gait disturbances, facial droop or ataxia. She noted nausea during the vertigo episodes and notes that her symptoms were exacerbated with movement. She notes lying flat she does not notice any symptoms however when she sits up she develops vertigo again. Upon presentation her INR was subtherapeutic at 1.73. No tPA was given. Patient admits to changing her diet recently and but is compliant with taking her warfarin and is compliant with her INR checks every two weeks. Patient's MRI revealed lacunar infarct in the left cerebellum that is acute/subacute. Patient also complains of word finding difficulty and memory problems over the last few years. She notes this with new memories but is able to recall her childhood and youth easily. She states over the last few days this issue has progressed somewhat. The patient was evaluated by physical therapy and was cleared. She was also evaluated by speech therapy and due to her cognition issues was recommended outpatient follow up. Hospital Course #Acute onset of vertigo with new left cerebellar lacunar infarct, present on admission -Case was discussed by ER doctor with neurology who recommended therapeutic subcutaneous Lovenox given subtherapeutic INR -CTA of brain and neck did not reveal any significant abnormalities as noted above. -Echocardiogram was completed on day of discharge and results noted above -Placed on telemetry -Pharmacy to dose warfarin therapy -Check fasting lipid panel looks fine -OT, PT, speech therapy evaluations -Patient improved significantly with OT PT and speech therapy. -Would recommend continuing those as an outpatient with prescriptions from her primary care provider Dr. Zimmer # Subtherapeutic INR, present on admission -She is needing to continue with Lovenox 100 mg subcutaneous every 12 hours until INR is therapeutic 2 days. -Pharmacy here did recommend continuing with 7.5 mg by mouth daily of Coumadin and being compliant and consistent with her diet # History of tricuspid and mitral valve replacements one of which is mechanical , present on admission -We will try to get records from [facility] # Hyperlipidemia, chronic, present on admission -Place her on her usual Lipitor dose # DVT prophylaxis -Is to be on therapeutic Lovenox # CODE STATUS -Full code Exam Vital Signs (Last) Date Time Temp Pulse Resp B/P Pulse Ox O2 Delivery O2 Flow Rate FiO2 07/01/17 13:44 36.9 58 18 118/57 94 Room Air 06/30/17 06:37 2.00 Exam Constitutional: Middle-aged female in no acute distress Head: Normocephalic atraumatic Mouth: No lesions Chest: Clear to auscultation Cor: Regular rate and rhythm with crisp S1, S2 Abdomen: Soft nontender bowel sounds present Extremities: No pedal edema Neuro: Alert and oriented 3, motor strength is intact bilaterally, gait is markedly improved and she ambulates without any difficulties Test 06/29/17 08:10 07/01/17 05:25 White Blood Count 5.8th/mm3 (3.8-10.1) Red Blood Count 4.73mil/mm3 (3.90-5.20) Hemoglobin 13.1g/dL (12.0-15.6) Hematocrit 40.7% (35.0-46.0) Mean Corpuscular Volume 86.0fL (81-100) Mean Corpuscular Hemoglobin 27.7pg (27.0-35.0) Mean Corpuscular Hemoglobin Concent 32.2% (32.0-37.0) Red Cell Distribution Width 16.0% (12.3-15.4) Platelet Count 183bil/L (150-400) Neutrophils (%) (Auto) 42.1% (40-74) Lymphocytes (%) (Auto) 44.7% (14-46) Monocytes (%) (Auto) 8.2% (4-12) Eosinophils (%) (Auto) 4.1% (0-5) Basophils (%) (Auto) 0.7% (0-3) Sodium Level 142mEq/L (134-144) Potassium Level 3.6mEq/L (3.5-5.2) Chloride Level 102mEq/L (97-108) Carbon Dioxide Level 22mmol/L (18-29) Blood Urea Nitrogen 15mg/dL (8-27) Creatinine 0.95mg/dL (0.57-1.00) Estimat Glomerular Filtration Rate 85mL/min (>59) Glucose Level 87mg/dL (60-99) Calcium Level 9.4mg/dL (8.5-10.1) Magnesium Level 2.1mg/dL (1.6-2.6) Total Bilirubin 0.5mg/dL (0.0-1.2) Aspartate Amino Transf (AST/SGOT) 23U/L (0-50) Alanine Aminotransferase (ALT/SGPT) 18U/L (0-32) Alkaline Phosphatase 97U/L (25-165) Troponin T 0.010ug/L (0.0-0.011) Total Protein 7.7g/dL (6.4-8.4) Albumin 4.0g/dL (3.4-5.0) Triglycerides Level 146mg/dL (0-149) Cholesterol Level 163mg/dL (100-199) LDL Cholesterol, Calculated 70.800mg/dL (0-99) VLDL Cholesterol 29.200mg/dL HDL Cholesterol 63mg/dL (>39) Cholesterol/HDL Ratio 2.59 (0.0-4.4) Prothrombin Time 20.0sec (8.1-12.5) Prothromb Time International Ratio 1.85ratio Discharge Medications Discharge Medications Atorvastatin (Lipitor) 80 Mg Tablet 80 MG PO HS (Reported) Enoxaparin (Lovenox) 100 Mg/Ml Syringe 100 MG SUBQ Q12H Prescribed by: SOWMYA JACQUES MD Furosemide (Furosemide) 20 Mg Tab 60 MG PO QAM (Reported) Magnesium Oxide (Magnesium) 400 Mg Tablet 400 MG PO QAM (Reported) Melatonin (Melatonin) 3 Mg Tablet 6 MG PO HS (Reported) Methimazole (Methimazole) 10 Mg Tablet 40 MG PO QAM (Reported) Potassium Chloride ER (Potassium Chloride ER) 20 Meq Tablet.er Unknown Dose PO DAILY (Reported) TAKE WITH FOOD Vitamin B Complex & Vit C No.3 (B Complex with Vitamin C) 1 Each Capsule 1 EACH PO QAM (Reported) Warfarin Sodium (Coumadin) 7.5 Mg Tablet 7.5 MG PO DAILY Prescribed by: SOWMYA JACQUES MD As needed Acetaminophen (Acetaminophen) 325 Mg Tablet 650 MG PO Q4H PRN PRN Headache ( Reported) Followup Plan Disposition: Home Follow-up plan Patient is instructed she needs daily INRs until her INR is therapeutic 2 days. She is to get that done through her primary care office in [facility] Discharge Diet: Heart Healthy Discharge Activity: Other (progress as tolerated) Patient Instructions You will need daily INR checks by her primary care provider in order to see when you can stop the Lovenox and just be on Coumadin therapy. Follow-up Provider: Clovis Zimmer MD Follow-up with PCP in: Other (in 2 days, sooner if problems) Time spent 60 minutes copies to: Clovis Zimmer MD, Cheryl A MD Jul 01, 2017 14:43
--- NOTE | 2017-07-01 15:00 | NUR ---
Social Work-readiness for discharge: Data:EMR reviewed. Pt is on day 2 of hospitalization for cerebellar infarction per H&P. Pt is likely medically stable for discharge. DISHA received MD order for pt regarding setting up follow up PCP appointment and checking RX for Lovenox. DISHA met with pt who states she sees Dr. Zimmer. DISHA placed a call to Dr. Zimmer's office and was able to schedule an appointment for pt for 07/03 at 1440. Pt will need INR checked tomorrow, pt states she has a lab that she will be able to go to. SW provided pt with appointment time for her followup and she is agreeable. Pt states her preferred pharmacy is [facility] in [place]. DISHA called [facility] [phone] and spoke with pharmacy who states that pt is a regular pt and to fax RX over to check pt's coverage. Pharmacy to call SW back with coverage. SW will continue to follow. Assessment:Pt who is independent at baseline. Plan:Pt to discharge home when medically stable via POV. Pt has follow up appointment with PCP on at 1440. DISHA faxed RX to [facility] to check copay amount. SW will continue to follow. FOSTER Contreras Addendum: 07/01/17 at 1548 by SHAKIR ELIZALDE SS DISHA placed a call back to [facility] pharmacy. Pt's RX is covered at 100%, DISHA updated pt and she is agreeable to plan. FOSTER Contreras
--- NOTE | 2017-07-01 15:48 | NUR ---
Social Work-discharge: Data:EMR reviewed. Pt is on day 2 of hospitalization for cerebellar infarction per H&P. Pt is medically stable for discharge. Pt has been cleared by therapies to return home no needs. SW received a call back from pharmacy and pt's RX is covered at 100%, SW updated pt. Follow up PCP appointment is made for 07/03 at 1440. Pt aware of this appointment and also aware that she will need to go get her INR checked at a lab tomorrow. Pt states her will be pick her up this evening, but he is [place] a ferry so it will be later. All updated and agreeable to plan. Assessment:Pt who is independent at baseline. Plan:Pt to discharge home today via POV. Pt's follow up appointment made for 07/03 at 1440. Pt's Lovenox covered at 100%. Pt has been cleared by therapies to return home. No discharge needs identified. All updated and agreeable to plan. FOSTER Contreras
[2017-07-01] MEDS ORDERED: Warfarin 5 MG, Warfarin 2.5 MG PO ONE ×2 (17:00)
== END 2017-07-01 19:14 | disposition home or self-care (01) | DRG 66 ==
LOC: SED 08:08 → EDBD 08:08 → MPC 16:06
PROVIDERS: ADMIT Specialist; ATTEND Specialist
DX: I63.8 Other cerebral infarction (principal); I48.91 Unspecified atrial fibrillation; E78.5 Hyperlipidemia, unspecified; E05.00 Thyrotoxicosis with diffuse goiter without thyrotoxic crisis or storm; Z95.2 Presence of prosthetic heart valve; Z87.891 Personal history of nicotine dependence; Z79.01 Long term (current) use of anticoagulants